=== PATIENT | male | born 1980 ===

== ENCOUNTER 2025-03-03 16:41 | Emergency (ER) | payer MEDICAID, OTHER, SELFPAY ==
--- NOTE | ~2025-03-03 | XR_ITS ---
CLINICAL HISTORY: right index finger injury due to machine 3 view right hand Comparison: None provided Findings: No fractures or dislocations. No significant arthritic change. No erosions. No radiopaque foreign body. IMPRESSION: 1. No acute findings This document has been electronically signed by: Drew Malin MD on 03/03/2025 18:04:59
[2025-03-03 17:04] VITALS: BP 137/86; PULSE 81; RESP 16; TEMP 36.8; O2SAT 96; BMI 25.4
--- NOTE | 2025-03-03 17:11 | ED_ITS ---
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 This happened just prior to arrival He does not know when his last tetanus was He is able to bend and extend the finger Denies any other injuries Related Data Allergies Allergy/AdvReac Type Severity Reaction Status Date / Time No Known Allergies Allergy Verified 03/03/25 17:05 Review of Systems Integumentary/Breasts: Skin/Breast: Reports wounds PMFSH Social History Social History Advance Directives: No Advance Directives Information Provided: No Physical Exam ED Vital Signs: Vital Signs - 24 hr 03/03/25 17:04 03/03/25 22:40 Temperature 98.2 F 98 F Pulse Rate 81 77 Respiratory Rate 16 18 Blood Pressure 137/86 115/77 Pulse Oximetry 96 99 Oxygen Delivery Method Room Air Room Air BMI result Body Mass Index 25.4 Const General: healthy appearing, comfortable, no acute distress, alert and awake Nutritional Appearance: well nourished Orientation/consciousness: patient oriented x3 HENMT Head: Yes normocephalic and Yes atraumatic Eyes Eyelids: Yes eyelids normal Conjunctivae: conjunctivae normal Sclerae: sclerae normal Corneas: corneas normal Pupils: Equal, round and reactive pupils present EOM: EOMs intact bilaterally Resp Effort & Inspection: normal respiratory effort, able to speak in complete sentences and not labored Skin Other: The patient has a somewhat irregularly shaped about 5 cm laceration to the radial side of the right index finger. General skin exam: elasticity normal Neuro General: patient oriented x3 Cranial nerves: Yes Equal, round and reactive pupils present and Yes Bilaterally intact EOM present Cognition (Neuro): normal cognition Extrem Other: Moving all extremities well without any obvious deformities Course Course Course Narrative: RME: 44 yold male presents to the ED For rigght index finger laceration caused by machine at work. Medications Administered Discontinued Medications Generic Name Dose Route Start Last Admin Trade Name Freq PRN Reason Stop Dose Admin Diphtheria/Tetanus/Acell Pertussis 0.5 ml 03/03/25 17:10 03/03/25 18:41 Diphth,Pertus(Acell),Tet Adult 0.5 Ml Syringe IM 03/03/25 17:11 0.5 ml .ONCE ONE Administration Lidocaine HCl 5 ml 03/03/25 21:09 03/03/25 22:08 Lidocaine Hcl 1 % Mpf 5 Ml Vial INFILTRATI 03/03/25 21:10 5 ml ONCE ONE Administration Procedures Laceration Laceration 1: Site: hand Side (If applicable): right (Second finger) Size (cm): 5 Description: irregular Depth: simple, single layer Local Anesthetic: lidocaine 1% Amount of anesthesia used (mL): 4 Pre-repair: wound explored, irrigated extensively and deep structures intact Skin layer closed with: nylon Size (cm): 4-0 Number of sutures: 14 Technique: simple, interrupted Medical Decision Making Medical Decision Making MDM Narrative: 44-year-old male presents for evaluation of right index finger laceration. This was an accidental laceration. There was no evidence of tendon laceration he is able to fully extend and flex his digit. X-ray was ordered which does not show any retained foreign body or osseous injury. See procedure note for wound repair. The patient's tetanus was updated today Differential Diagnosis Differential Diagnoses: The differential diagnosis associated with the presentation includes Laceration Skin tear Puncture wound Abrasion Discharge Plan Discharge Clinical Impression: Finger laceration Patient Disposition: Home, Self-Care Instructions: Finger Laceration (ED) Additional Instructions: Your x-ray did not show any fractures. It does not look like you injured any tendons. You had 14 sutures placed to the finger. Your tetanus was updated today. Keep the area clean and dry. Return in 2 weeks to have the sutures removed or have your primary doctor remove them in 2 weeks Stand Alone Forms: Work/School Release Interventions: ED Discharge Assessment Last Done: 03/03/25 22:40 Discharge Date/Time: 03/03/25 22:43 Print Language: [place] Citizen
[2025-03-03] MEDS: Diphth,Pertus(ACell),Tet Adult 0.5 ML SYRINGE IM (18:41)
--- NOTE | 2025-03-03 20:05 | PC.NURSE ---
assumed care of pt. reports 09/19, throbbing finger. wound is wrapped at this time, previous RN reports this was done in triage. bleeding under control at this time. Family at bedside. pt restless, advise we are waiting for provider to see pt, Xrays wee obtained.
[2025-03-03] MEDS: Lidocaine HCl 1 % MPF 5 ML VIAL INFILTRATI (22:08)
[2025-03-03 22:40] VITALS: BP 115/77; PULSE 77; RESP 18; TEMP 36.6; O2SAT 99
== END 2025-03-03 22:43 | disposition home or self-care (01) ==
PROVIDERS: Emergency Provider Emergency Medicine
DX: S61.210A Laceration without foreign body of right index finger without damage to nail, initial encounter (principal); M79.641 Pain in right hand; W31.82XA Contact with other commercial machinery, initial encounter; Y93.89 Activity, other specified; Y92.9 Unspecified place or not applicable; Y99.0 Civilian activity done for income or pay; Z23 Encounter for immunization
CPT/HCPCS: 12002; 73130; 90471; 90715; 99282; 99284; J2003

== ENCOUNTER → 2025-03-03 17:10 | Outpatient (BNV) | payer MEDICAID, SELFPAY | PROVIDERS: Visit Provider Specialist | DX: S69.91XA Unspecified injury of right wrist, hand and finger(s), initial encounter (principal) | CPT/HCPCS: 73130 ==